=== PATIENT | female | born 1955 | race Caucasian/White ===

== ENCOUNTER → 2016-10-14 | Outpatient (CLI) | payer OTHER ==
[~2016-10-14] MED LIST: AMBIEN CR12.5 MG PO; AMBIEN10 MG PO; Ambien PO; FLOVENT 11120 INHALA IH; KLONOPIN1 MG PO; KLONOPIN2 MG PO; KlonoPIN PO; OMEPRAZOLE20 M2; OMEPRAZOLE20 MG PO; OXYCODONE HCL15 MG PO; OXYCODONE15 MG PO; OXYCONTIN30 MG PO; OXYCONTIN80 MG PO; OxyCONTIN PO; PAROXETINE HCL10 MG PO; PERCOCET 10/1 TABLET PO; PREDNISONE10 MG PO; REQUIP1 MG PO; ROXICODONE5 MG PO; SEREVENT DISKU50 MCG IH; SLEEP AID25 M1 PO; ZITHROMAX Z-PA250 MG PO; ZOCOR20 MG PO; ZOCOR40 MG PO; Zofran PO; oxyCODONE PO
== END | disposition home or self-care (01) ==
LOC: RAD 14:35
DX: I70.0 Atherosclerosis of aorta (principal); J98.4 Other disorders of lung; R91.8 Other nonspecific abnormal finding of lung field; M47.9 Spondylosis, unspecified; M43.22 Fusion of spine, cervical region; M40.202 Unspecified kyphosis, cervical region; M54.2 Cervicalgia
CPT/HCPCS: 71020; 72040

== ENCOUNTER 2017-04-13 21:37 | Observation (INO) | payer OTHER ==
[~2017-04-13] VITALS: Ht 162.6 cm; Wt 67.9 kg
[~2017-04-13 21:37] MED LIST changes: +OXYCODONE HCL10 MG PO
[2017-04-13 22:27] LABS: BASOPHIL (%) 0.7 % (0-1); BASOPHIL COUNT 0.1 K/uL (0-0.1); EOSINOPHIL (%) 2.1 % (0-5); EOSINOPHIL COUNT 0.2 K/uL (0-0.3); HEMATOCRIT 44.6 % (36.0-46.0); HEMOGLOBIN 14.8 G/DL (11.9-15.5); IMMATURE GRANULOCYTE (%) 0.2 % (0.0-0.7); LYMPHOCYTE (%) 31.3 % (15-42); LYMPHOCYTE COUNT 2.8 K/uL (1.0-2.8); MCH 30.6 PG (29.0-34.0); MCHC 33.2 G/DL (30.0-36.0); MCV 92.1 FL (83-99); MONOCYTE (%) 8.5 % (3-12); MONOCYTE COUNT 0.8 K/uL (0-0.8); NEUTROPHIL (%) 57.2 % (45-76); NEUTROPHIL COUNT 5.1 K/uL (1.8-6.4); PLATELET COUNT 197 K/uL (156-360); RBC DIS.WIDTH-CV 12.1 % (11.8-14.6); RBC DIS.WIDTH-SD 40.8 % (39-53); RED BLOOD COUNT 4.84 M/uL (3.80-5.20); WHITE BLOOD COUNT 8.9 K/uL (4.1-10.2)
[2017-04-13 22:35] LABS: INTER. NORMALIZED RATIO 0.9
[2017-04-13 22:38] LABS: PTT 30.5 SEC (25-37)
[2017-04-13 22:39] LABS: AMYLASE 41 IU/L (1-118); CHLORIDE 105 mEq/L (99-109); POTASSIUM 4.1 mEq/L (3.7-5.4); SODIUM 141 mEq/L (136-147)
[2017-04-13 22:41] LABS: GLUCOSE 102 mg/dL (70-99)
[2017-04-13 22:44] LABS: SERUM ETHYL ALCOHOL < 10 mg/dL
[2017-04-13 22:45] LABS: CREATININE 0.9 mg/dL (0.6-1.3); GFR ESTIMATE (CALCULATED) > 59 mL/min/
[2017-04-13 22:46] LABS: UREA NITROGEN (BUN) 14 mg/dL (9-23)
[2017-04-13 22:48] LABS: TROP-I INTERPRETATION NEGATIVE; TROPONIN-I < 0.01 ng/mL (0.0-0.30)
[2017-04-13 22:48] LABS: LIPASE 29 U/L (1.0-51.0)
[2017-04-14] MEDS ORDERED: ALBUTEROL2.5 MG/3 M IH (00:18)
[2017-04-14] MEDS ORDERED: ADVAIR 250/501 DISK IH (00:18)
[2017-04-14] MEDS ORDERED: REQUIP1 MG PO (00:18)
[2017-04-14] MEDS ORDERED: ATIVAN0.5 MG PO (00:18)
[2017-04-14 01:03] LABS: APPEARANCE CLEAR ((CLEAR)); BILIRUBIN NEGATIVE; BLOOD SMALL; COLOR YELLOW ((YELLOW)); GLUCOSE (STRIP) NEGATIVE; KETONES NEGATIVE; LEUKOCYTES NEGATIVE; NITRITE NEGATIVE; PROTEIN (STRIP) NEGATIVE; SPECIFIC GRAVITY 1.034 (1.000-1.030); UROBILINOGEN 0.2 MG/DL (0.2-1.0)
[2017-04-14 01:05] LABS: BACTERIA RARE /HPF; EPITHELIAL CELLS RARE /HPF; MUCUS NONE SEEN /LPF; RED BLOOD CELLS 0-5 /HPF (0-5); UCUL ADDED? NO; WHITE BLOOD CELLS 0-5 /HPF (0-5)
[2017-04-14 01:15] LABS: AMPHETAMINE NEGATIVE (500 ng/mL); BARBITURATES NEGATIVE (200 ng/mL); BENZODIAZEPINES NEGATIVE (150 ng/mL); BUPRENORPHINE NEGATIVE (10 ng/mL); COCAINE NEGATIVE (150 ng/mL); METHADONE NEGATIVE (200 ng/mL); METHAMPHETAMINE NEGATIVE (500 ng/mL); OPIATES (MORPHINE) NEGATIVE (100 ng/mL); OXYCODONE PRESUMPTIVE POSITIVE (100 ng/mL); PHENCYCLIDINE NEGATIVE (25 ng/mL); PROPOXYPHENE NEGATIVE (300 ng/mL); THC CANNABINOIDS NEGATIVE (50 ng/mL); TRICYCLIC ANTIDEPRESSANTS NEGATIVE (300 ng/mL)
[2017-04-14 03:45] VITALS: BP 137/67
[2017-04-14 06:31] LABS: HDL CHOLESTEROL 52 MG/DL (Desirable>=50); LDL CHOLESTEROL 80 mg/dL (Desirable<100); NON-HDL CHOLESTEROL 96 mg/dL (Desirable<160); TOTAL CHOLESTEROL 148 mg/dL (Desirable<200); TRIGLYCERIDES 81 MG/DL (Normal: <150)
[2017-04-14 06:48] LABS: TROP-I INTERPRETATION NEGATIVE; TROPONIN-I < 0.01 ng/mL (0.0-0.30)
[2017-04-14 07:46] VITALS: BP 126/57
[2017-04-14 11:25] VITALS: BP 98/53
[2017-04-14 11:51] LABS: HEMOGLOBIN A1c (GLYCOHEMOGLOB) 5.6 % (Below 5.7)
[2017-04-14 11:53] LABS: TROP-I INTERPRETATION NEGATIVE; TROPONIN-I < 0.01 ng/mL (0.0-0.30)
[2017-04-14 11:57] VITALS: BP 102/50
[2017-04-14 11:58] VITALS: BP 115/58; BP 130/57
[2017-04-14] MEDS ORDERED: ANTIVERT25 MG PO (15:06)
[2017-04-14] MEDS ORDERED: CLOPIDOGREL75 MG PO (15:06)
[2017-04-14] MEDS ORDERED: MEDROL DOSEPAK4 MG PO (15:07)
[2017-04-14 15:30] VITALS: BP 116/60
== END 2017-04-14 17:41 | disposition home or self-care (01) ==
LOC: EME → EDBD 21:37 → EME 21:37 → ENPENDDIS 04-14 → EDOF 04-14 01:56 → 5WEST 04-14 01:56 → EDOF 04-14 01:56 → ENRESERV 04-14 01:58 → 5WEST 04-14 03:33
PROVIDERS: Emergency Medicine; Hospitalist; Physician Assistant
DX: G45.9 Transient cerebral ischemic attack, unspecified (principal); R91.1 Solitary pulmonary nodule; R09.02 Hypoxemia; J44.1 Chronic obstructive pulmonary disease with (acute) exacerbation; Z85.3 Personal history of malignant neoplasm of breast; Z92.21 Personal history of antineoplastic chemotherapy; Z90.12 Acquired absence of left breast and nipple; Z92.3 Personal history of irradiation; G24.9 Dystonia, unspecified; F95.8 Other tic disorders; G89.29 Other chronic pain; M54.2 Cervicalgia; R07.9 Chest pain, unspecified; F17.210 Nicotine dependence, cigarettes, uncomplicated; E78.5 Hyperlipidemia, unspecified; Z82.49 Family history of ischemic heart disease and other diseases of the circulatory system; H92.02 Otalgia, left ear
CPT/HCPCS: 70450; 70496; 70498; 70551; 71046; 71250; 80048; 80061; 81003; 82150; 82948; 83036; 83690; 84484; 85025; 85610; 85730; 86850; 86900; 86901; 87502; 93005; 94640; 94640 76; 94799; 95819; 99202; 99281; 99285; G0378; G0480; G8978 GP CI; G8979 GP CH; G8980 GP CI; G8987 GO CI; G8988 GO CH; G8989 GO CH; G8989 GO CI; J1650; J2405; J2930

== ENCOUNTER → 2017-05-03 | Outpatient (CLI) | payer OTHER ==
[~2017-05-03] MED LIST changes: +ADVAIR 250/501 DISK IH; +ALBUTEROL2.5 MG/3 M IH; +ANTIVERT25 MG PO; +ATIVAN0.5 MG PO; +CLOPIDOGREL75 MG PO; +MEDROL DOSEPAK4 MG PO
== END | disposition home or self-care (01) ==
LOC: OPR 09:38 → EDSTATUS 10:00 → OPR 10:00
DX: C78.01 Secondary malignant neoplasm of right lung (principal); Z85.3 Personal history of malignant neoplasm of breast; E78.5 Hyperlipidemia, unspecified; K21.9 Gastro-esophageal reflux disease without esophagitis
CPT/HCPCS: 71045; 77012; 88305; 88341 TC; 88342 TC; J3010

== ENCOUNTER → 2017-06-07 | Outpatient (CLI) | payer OTHER ==
[~2017-06-07] MED LIST changes: +PRILOSEC20 MG PO
[2017-06-07 09:17] LABS: HEMATOCRIT 43.6 % (36.0-46.0); HEMOGLOBIN 14.5 G/DL (11.9-15.5); MCH 30.8 PG (29.0-34.0); MCHC 33.3 G/DL (30.0-36.0); MCV 92.6 FL (83-99); PLATELET COUNT 188 K/uL (156-360); RBC DIS.WIDTH-CV 12.1 % (11.8-14.6); RBC DIS.WIDTH-SD 41.6 % (39-53); RED BLOOD COUNT 4.71 M/uL (3.80-5.20); WHITE BLOOD COUNT 7.1 K/uL (4.1-10.2)
[2017-06-07 09:29] LABS: INTER. NORMALIZED RATIO 0.9
[2017-06-07 09:31] LABS: PTT 31.9 SEC (25-37)
== END | disposition home or self-care (01) ==
LOC: OPR 08:26 → EDSTATUS 09:00 → OPR 09:00
PROVIDERS: Internal Medicine Hematology & Oncology
PROC: 0BDJ4ZX Extraction of Left Lower Lung Lobe, Percutaneous Endoscopic Approach, Diagnostic (ICD-10-PCS; principal; 2017-06-07)
DX: C78.02 Secondary malignant neoplasm of left lung (principal); Z85.3 Personal history of malignant neoplasm of breast; Z92.21 Personal history of antineoplastic chemotherapy; Z90.12 Acquired absence of left breast and nipple; F17.200 Nicotine dependence, unspecified, uncomplicated; E78.5 Hyperlipidemia, unspecified; K21.9 Gastro-esophageal reflux disease without esophagitis
CPT/HCPCS: 71045; 77012; 85027; 85610; 85730; 88305; 88341 TC; 88342 TC